=== PATIENT | female | born 1940 | race Caucasian/White ===

== ENCOUNTER 2016-12-07 13:28 | Outpatient (CLI) | payer MEDICARE | END 2016-12-07 13:29 | disposition home or self-care (01) | LOC: MADLABBHPM 13:28 | PROVIDERS: ATTEND Family Medicine | DX: E55.9 Vitamin D deficiency, unspecified (principal) | CPT/HCPCS: 36415; 82306 ==

== ENCOUNTER 2017-01-12 11:21 | Emergency (ER) | payer MEDICARE ==
[2017-01-12] MEDS ORDERED: AMOXicillin 250 MG CAP ONE (12:35)
[2017-01-12] MEDS ORDERED: Benzonatate 100 MG CAP ONE (12:35)
== END 2017-01-12 12:45 | disposition home or self-care (01) ==
LOC: MADERS 11:21
DX: J20.9 Acute bronchitis, unspecified (principal); E03.9 Hypothyroidism, unspecified; E78.5 Hyperlipidemia, unspecified; I10 Essential (primary) hypertension
CPT/HCPCS: 99283

== ENCOUNTER 2017-02-07 15:41 | Outpatient (CLI) | payer MEDICARE ==
--- NOTE | 2017-02-07 16:23 | RAD ---
RIGHT ANKLE THREE VIEWS 02/07/17 HISTORY: Right ankle pain. FINDINGS: The ankle mortise is intact. Soft tissue swelling is evident about the ankle. No acute fracture or d islocation are apparent. Osteophytosis is present throughout the midfoot and hindfoot. Heel spurs ar ise from the posterior aspect of the calcaneus. IMPRESSION: Mild osteoarthritic changes. No acute osseous abnormalities are demonstrated. POS: YOMAIRA
--- NOTE | 2017-02-07 16:24 | RAD ---
THREE VIEWS OF THE LEFT ANKLE 02/07/17 COMPARISON: None. HISTORY: Ankle joint pain for three weeks. No history of trauma. FINDINGS: The talar dome and ankle mortise appear intact. There is no displaced fracture or evidence of disloc ation. There is enthesophyte formation at the origin of the plantar aponeurosis and insertion of the Achilles tendon. There is prominent dorsal degenerative change involving the midfoot. IMPRESSION: Degenerative changes. No acute fracture or dislocation seen. POS: WILFRED
== END 2017-02-07 15:42 | disposition home or self-care (01) ==
LOC: MADLAB 15:41
PROVIDERS: ATTEND Family Medicine
DX: M25.571 Pain in right ankle and joints of right foot (principal); M19.071 Primary osteoarthritis, right ankle and foot

== ENCOUNTER 2017-03-27 13:49 | Outpatient (CLI) | payer MEDICARE ==
[2017-03-27 14:11] LABS: #Basophils 0.1 thou/uL (0.0-0.2); #Lymphocytes 1.8 thou/uL (1.20-3.40); #Monocytes 0.6 thou/uL (0.11-0.59); #Neutrophils 3.4 thou/uL (1.40-6.50); %Basophils 1.3 % (0.0-1.0); %Lymphocytes 30.7 % (21.0-51.0); %Monocytes 10.1 % (0.0-10.0); %Neutrophils 57.9 % (42.0-75.0); Mean Corpuscular HGB CONC 33.4 g/dL (32.0-36.0); Mean Corpuscular Hemoglobin 29.5 pg (27.0-31.0); Mean Corpuscular Volume 88.3 fl (81.0-99.0); Mean Platelet Volume 6.4 fL (7.4-10.4); Platelet Count 332 thou/uL (130-400); RBC Distribution Width 13.8 % (11.5-14.5); Red Blood Cell (RBC) Count 3.73 mill/uL (4.20-5.40); White Blood Cell (WBC) Count 5.8 thou/uL (4.8-10.8)
[2017-03-27 15:09] LABS: ALT (SGPT) 17 U/L (8-55); AST (SGOT) 15 U/L (5-34); Albumin 3.8 g/dL (3.4-4.8); Alkaline Phosphatase 70 U/L (40-150); Anion Gap 14 mmol/L (10-20); BUN (Urea Nitrogen) 16 mg/dL (9.8-20.1); Bilirubin, Total Less than 0.3 mg/dL (0.2-1.2); Calc. Creatinine Clearance 0 mL/min (70-130); Carbon Dioxide 25 mmol/L (23-31); Chloride 101 mmol/L (98-107); Estimated GFR-MDRD 68; Globulin 2.6 g/dL (2.4-3.5); Glucose 109 mg/dL (83-110); Potassium 3.7 mmol/L (3.5-5.1); Protein, Total 6.4 g/dL (6.0-8.3); Sodium 136 mmol/L (136-145)
== END 2017-03-27 13:50 | disposition home or self-care (01) ==
LOC: MADLABBHPM 13:49
PROVIDERS: ATTEND Family Medicine
DX: E03.9 Hypothyroidism, unspecified (principal); D50.8 Other iron deficiency anemias; I10 Essential (primary) hypertension
CPT/HCPCS: 36415; 80053; 84443; 85025

== ENCOUNTER 2017-04-03 13:46 | Outpatient (CLI) | payer MEDICARE ==
[2017-04-03 14:36] LABS: #Basophils 0.1 thou/uL (0.0-0.2); #Lymphocytes 1.5 thou/uL (1.20-3.40); #Monocytes 0.6 thou/uL (0.11-0.59); #Neutrophils 4.4 thou/uL (1.40-6.50); %Basophils 1.4 % (0.0-1.0); %Eosinophils 0.7 % (0.0-10.0); %Lymphocytes 22.8 % (21.0-51.0); %Monocytes 8.5 % (0.0-10.0); %Neutrophils 66.5 % (42.0-75.0); Hemoglobin 11.3 g/dL (12.0-16.0); Mean Corpuscular HGB CONC 31.7 g/dL (32.0-36.0); Mean Corpuscular Hemoglobin 28.7 pg (27.0-31.0); Mean Corpuscular Volume 90.4 fl (81.0-99.0); Mean Platelet Volume 5.9 fL (7.4-10.4); Platelet Count 369 thou/uL (130-400); RBC Distribution Width 15.3 % (11.5-14.5); Red Blood Cell (RBC) Count 3.93 mill/uL (4.20-5.40); White Blood Cell (WBC) Count 6.7 thou/uL (4.8-10.8)
== END 2017-04-03 13:47 | disposition home or self-care (01) ==
LOC: MADLABBHPM 13:46
PROVIDERS: ATTEND Family Medicine
DX: D50.8 Other iron deficiency anemias (principal)
CPT/HCPCS: 36415; 85025

== ENCOUNTER 2017-04-14 13:35 | Outpatient (CLI) | payer MEDICARE ==
[2017-04-14 14:00] LABS: Hemoglobin 12.5 g/dL (12.0-16.0); Manual Diff?? YES; Mean Corpuscular HGB CONC 31.4 g/dL (32.0-36.0); Mean Corpuscular Volume 92.4 fL (81.0-99.0); Mean Platelet Volume 7.2 fL (7.4-10.4); Platelet Count 198 thou/uL (130-400); RBC Distribution Width 16.6 % (11.5-14.5); Red Blood Cell (RBC) Count 4.31 mill/uL (4.20-5.40); White Blood Cell (WBC) Count 5.7 thou/uL (4.8-10.8)
[2017-04-14 14:23] LABS: Band 2 % (5-11); MDiff Complete? YES; Neutrophil 68 % (42-75)
[2017-04-14 14:24] LABS: Lymphocytes 19 % (21-51); Monocytes 11 % (0-10); PLT Morphology Comment Appears Adequate; RBC Morphology Normal
== END 2017-04-14 13:36 | disposition home or self-care (01) ==
LOC: MADLABBHPM 13:35
PROVIDERS: ATTEND Family Medicine
DX: D50.8 Other iron deficiency anemias (principal)
CPT/HCPCS: 36415; 85025

== ENCOUNTER 2017-04-28 09:08 | Outpatient (CLI) | payer MEDICARE ==
[2017-04-28 10:06] LABS: #Lymphocytes 1.1 thou/uL (1.20-3.40); #Monocytes 0.4 thou/uL (0.11-0.59); #Neutrophils 1.8 thou/uL (1.40-6.50); %Basophils 1.2 % (0.0-1.0); %Eosinophils 1.3 % (0.0-10.0); %Lymphocytes 33.4 % (21.0-51.0); %Monocytes 11.4 % (0.0-10.0); %Neutrophils 52.7 % (42.0-75.0); Hemoglobin 13.2 g/dL (12.0-16.0); Mean Corpuscular Hemoglobin 29.5 pg (27.0-31.0); Mean Corpuscular Volume 92.2 fl (81.0-99.0); Mean Platelet Volume 6.9 fL (7.4-10.4); Platelet Count 214 thou/uL (130-400); RBC Distribution Width 14.9 % (11.5-14.5); Red Blood Cell (RBC) Count 4.49 mill/uL (4.20-5.40); White Blood Cell (WBC) Count 3.4 thou/uL (4.8-10.8)
== END 2017-04-28 09:09 | disposition home or self-care (01) ==
LOC: MADLABBHPM 09:08
PROVIDERS: ATTEND Family Medicine
DX: D50.8 Other iron deficiency anemias (principal)
CPT/HCPCS: 36415; 85025

== ENCOUNTER 2017-05-17 11:30 | Outpatient (CLI) | payer MEDICARE ==
[2017-05-17 13:04] LABS: #Basophils 0.1 thou/uL (0.0-0.2); #Eosinphils 0.1 thou/uL (0.0-0.7); #Lymphocytes 1.7 thou/uL (1.20-3.40); #Monocytes 0.4 thou/uL (0.11-0.59); #Neutrophils 2.7 thou/uL (1.40-6.50); %Basophils 1.9 % (0.0-1.0); %Eosinophils 2.4 % (0.0-10.0); %Lymphocytes 33.4 % (21.0-51.0); %Monocytes 8.8 % (0.0-10.0); %Neutrophils 53.5 % (42.0-75.0); Hemoglobin 14.2 g/dL (12.0-16.0); Mean Corpuscular HGB CONC 32.2 g/dL (32.0-36.0); Mean Corpuscular Hemoglobin 29.3 pg (27.0-31.0); Mean Corpuscular Volume 91.2 fl (81.0-99.0); Mean Platelet Volume 6.9 fL (7.4-10.4); Platelet Count 200 thou/uL (130-400); RBC Distribution Width 13.9 % (11.5-14.5); Red Blood Cell (RBC) Count 4.85 mill/uL (4.20-5.40)
== END 2017-05-17 11:31 | disposition home or self-care (01) ==
LOC: MADLABBHPM 11:30
PROVIDERS: ATTEND Family Medicine
DX: D50.8 Other iron deficiency anemias (principal)
CPT/HCPCS: 36415; 85025

== ENCOUNTER 2017-06-08 09:55 | Outpatient (CLI) | payer MEDICARE ==
[2017-06-08 10:38] LABS: #Basophils 0.1 thou/uL (0.0-0.2); #Lymphocytes 1.8 thou/uL (1.20-3.40); #Monocytes 0.4 thou/uL (0.11-0.59); #Neutrophils 2.7 thou/uL (1.40-6.50); %Basophils 2.5 % (0.0-1.0); %Lymphocytes 35.9 % (21.0-51.0); %Monocytes 8.5 % (0.0-10.0); Mean Corpuscular Volume 90.5 fl (81.0-99.0); Mean Platelet Volume 7.3 fL (7.4-10.4); Platelet Count 205 thou/uL (130-400); RBC Distribution Width 13.1 % (11.5-14.5); Red Blood Cell (RBC) Count 5.35 mill/uL (4.20-5.40); White Blood Cell (WBC) Count 5.1 thou/uL (4.8-10.8)
== END 2017-06-08 09:56 | disposition home or self-care (01) ==
LOC: MADLABBHPM 09:55
PROVIDERS: ATTEND Family Medicine
DX: D50.8 Other iron deficiency anemias (principal)
CPT/HCPCS: 36415; 85025

== ENCOUNTER 2017-06-19 16:38 | Outpatient (CLI) | payer MEDICARE ==
[2017-06-19 16:59] LABS: #Lymphocytes 1.4 thou/uL (1.20-3.40); #Monocytes 0.5 thou/uL (0.11-0.59); #Neutrophils 4.1 thou/uL (1.40-6.50); %Basophils 0.7 % (0.0-1.0); %Eosinophils 0.7 % (0.0-10.0); %Lymphocytes 22.8 % (21.0-51.0); %Monocytes 7.6 % (0.0-10.0); %Neutrophils 68.2 % (42.0-75.0); Hemoglobin 15.5 g/dL (12.0-16.0); Mean Corpuscular HGB CONC 32.1 g/dL (32.0-36.0); Mean Corpuscular Hemoglobin 28.4 pg (27.0-31.0); Mean Corpuscular Volume 88.6 fl (81.0-99.0); Mean Platelet Volume 7.7 fL (7.4-10.4); Platelet Count 204 thou/uL (130-400); Red Blood Cell (RBC) Count 5.44 mill/uL (4.20-5.40); White Blood Cell (WBC) Count 5.9 thou/uL (4.8-10.8)
== END 2017-06-19 16:39 | disposition home or self-care (01) ==
LOC: MADLAB 16:38
PROVIDERS: ATTEND Family Medicine
DX: D50.8 Other iron deficiency anemias (principal)
CPT/HCPCS: 36415; 85025

== ENCOUNTER 2017-06-30 11:29 | Outpatient (CLI) | payer MEDICARE ==
[2017-06-30 12:16] LABS: #Basophils 0.1 thou/uL (0.0-0.2); #Lymphocytes 1.7 thou/uL (1.20-3.40); #Monocytes 0.5 thou/uL (0.11-0.59); #Neutrophils 2.7 thou/uL (1.40-6.50); %Basophils 1.7 % (0.0-1.0); %Eosinophils 0.8 % (0.0-10.0); %Lymphocytes 34.2 % (21.0-51.0); %Monocytes 9.2 % (0.0-10.0); %Neutrophils 54.1 % (42.0-75.0); Hemoglobin 14.8 g/dL (12.0-16.0); Mean Corpuscular HGB CONC 31.5 g/dL (32.0-36.0); Mean Corpuscular Hemoglobin 28.2 pg (27.0-31.0); Mean Corpuscular Volume 89.4 fl (81.0-99.0); Platelet Count 225 thou/uL (130-400); RBC Distribution Width 12.6 % (11.5-14.5); Red Blood Cell (RBC) Count 5.25 mill/uL (4.20-5.40)
== END 2017-06-30 11:30 | disposition home or self-care (01) ==
LOC: MADLABBHPM 11:29
PROVIDERS: ATTEND Family Medicine
DX: D50.8 Other iron deficiency anemias (principal)
CPT/HCPCS: 36415; 85025

== ENCOUNTER 2017-07-10 08:52 | Outpatient (CLI) | payer MEDICARE ==
[2017-07-10 09:29] LABS: Hemoglobin 12.6 g/dL (12.0-16.0); Mean Corpuscular HGB CONC 31.5 g/dL (32.0-36.0); Mean Corpuscular Hemoglobin 28.5 pg (27.0-31.0); Mean Corpuscular Volume 90.7 fl (81.0-99.0); Mean Platelet Volume 7.5 fL (7.4-10.4); Platelet Count 223 thou/uL (130-400); RBC Distribution Width 13.8 % (11.5-14.5); White Blood Cell (WBC) Count 5.3 thou/uL (4.8-10.8)
[2017-07-10 09:41] LABS: Band 2 % (5-11); Lymphocytes 45 % (21-51); MDiff Complete? YES; Manual Diff?? YES; Monocytes 6 % (0-10); Neutrophil 47 % (42-75)
[2017-07-10 09:42] LABS: PLT Morphology Comment Appears Adequate; RBC Morphology Normal
== END 2017-07-10 08:53 | disposition home or self-care (01) ==
LOC: MADLABBHPM 08:52
PROVIDERS: ATTEND Family Medicine
DX: D50.8 Other iron deficiency anemias (principal)
CPT/HCPCS: 36415; 85025

== ENCOUNTER 2017-07-20 09:11 | Outpatient (CLI) | payer MEDICARE ==
[2017-07-20 09:35] LABS: #Basophils 0.1 thou/uL (0.0-0.2); #Lymphocytes 1.4 thou/uL (1.20-3.40); #Monocytes 0.3 thou/uL (0.11-0.59); #Neutrophils 2.3 thou/uL (1.40-6.50); %Basophils 1.2 % (0.0-1.0); %Eosinophils 0.1 % (0.0-10.0); %Lymphocytes 33.9 % (21.0-51.0); %Monocytes 8.3 % (0.0-10.0); %Neutrophils 56.4 % (42.0-75.0); Hemoglobin 13.3 g/dL (12.0-16.0); Mean Corpuscular HGB CONC 31.8 g/dL (32.0-36.0); Mean Corpuscular Volume 91.4 fl (81.0-99.0); Mean Platelet Volume 6.3 fL (7.4-10.4); Platelet Count 258 thou/uL (130-400); RBC Distribution Width 14.1 % (11.5-14.5); Red Blood Cell (RBC) Count 4.59 mill/uL (4.20-5.40); White Blood Cell (WBC) Count 4.1 thou/uL (4.8-10.8)
== END 2017-07-20 09:12 | disposition home or self-care (01) ==
LOC: MADLABBHPM 09:11
PROVIDERS: ATTEND Family Medicine
DX: D50.8 Other iron deficiency anemias (principal)
CPT/HCPCS: 36415; 85025

== ENCOUNTER 2017-08-02 09:19 | Inpatient (IN) | payer MEDICARE ==
[2017-08-02] MEDS ORDERED: HYDROcodone/Acetaminophen 10/325 mg Tablet PO PRN (11:03)
[2017-08-02] MEDS ORDERED: Bisacodyl 5 MG TAB PO PRN (13:06)
[2017-08-02] MEDS ORDERED: Docusate 100 MG CAP PO PRN (13:06)
[2017-08-02] MEDS: Enoxaparin Sodium 40 MG/0.4 ML SYRINGE SC SCH (13:25)
--- NOTE | 2017-08-02 15:14 | HP ---
ATTENDING PHYSICIAN: Debby Sanchez DO DATE OF ADMISSION: 08/02/2017 CHIEF COMPLAINT: Admission for physical therapy and occupational therapy status post right total knee arthroplasty. HISTORY OF PRESENT ILLNESS: This is a 76-year-old female with history of hypertension, hypothyroidism, gastroesophageal reflux disease, anemia , history of GI bleed, depression, restless legs syndrome, and osteoarthritis, seen today for admission to [facility] bed for planned PT and OT, status post right knee arthroplasty. The patient is 1 week postop as of today. Due to insurance issues, she was unable to get authorization until today and has been home since Monday, doing home PT exercises. The patient did get authorization from [facility] yesterday and presented this morning for inpatient stay. She has been approved for 7 days. The patient underwent right total knee arthroplasty on 07/26/[address] Suresh Birmingham at [facility]. The postoperative course has been unremarkable thus far. The patient does have a history of chronic anemia as well as history of GI bleed x2 in the last year, presumably due to Yovany's erosions from a large hiatal hernia. Her postop hemoglobin on 07/28/2017 was 9.1 per record reviewed today. She has been continued on iron as well as her home medications. The patient today has no complaints. She states she has been taking her pain medicine which has been hydrocodone or tramadol as needed and has taken a total of 2 tablets a day. She has been doing the exercises at home on Monday, Monday, Monday and Monday without any major issues. She has been deemed weightbearing as tolerated to that right lower extremity and is unable to give me an idea of how far she has been able to walk thus far. She states she has had one bowel movement since her surgery, but it was a large bowel movement. She denies any issues with constipation. She has had a good appetite and has been tolerating a diet without any issues. PAST MEDICAL HISTORY: 1. Hypertension. 2. Hypothyroidism. 3. Gastroesophageal reflux disease. 4. Chronic anemia. 5. 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 6. Degenerative arthritis to multiple joints. 7. Depression. 8. Chronic sinusitis. 9. Restless legs syndrome. PAST SURGICAL HISTORY: 1. Right total knee arthroplasty on 07/26/2017. 2. Appendectomy in 1962. 3. Hysterectomy in 1972. 4. Cataract surgery in 2012. 5. Left knee total arthroplasty on 04/2014. FAMILY HISTORY: Unremarkable and noncontributory. SOCIAL HISTORY: The patient is a nonsmoker. She does not drink alcohol or use illicit drugs. She lives at home with her and is independent on ADLs at baseline. ALLERGIES: The patient is allergic to SULFA medications, MORPHINE as well as NSAIDs due to history of GI bleeding. MEDICATIONS 1. Desvenlafaxine succinate ER 100 mg extended release 1 tablet daily. 2. Ropinirole 0.25 mg 1 tablet once a day as needed before bedtime. 3. Levothyroxine 125 mcg 1 tablet once daily. 4. Losartan/HCTZ 50/12.5 mg 1/2 tablet by mouth daily. 5. Tolterodine 4 mg 1 tablet daily. 6. Omeprazole 20 mg 1 tablet twice daily. 7. Tylenol 650 mg 1 tablet every 8 hours as needed. 8. Ferrous sulfate 325 mg 1 tablet once a day. 9. Hydrocodone 10/325 mg 1 tablet every 6 hours as needed. 10. Tramadol 50 mg 1 tablet every 6 hours as needed. 11. Keflex 500 mg 4 times a day for a total of 14-day course ending 9 days from now. 12. Lovenox 40 mg subcu daily for a total of 14-day course ending 1 week from now. REVIEW OF SYSTEMS: GENERAL: She denies any weight gain, weight loss, fever, chills, or malaise. HEENT: Denies any blurry vision, sore throat, runny nose, or ear pain. CARDIOVASCULAR: Denies any chest pain, palpitations, or chest pressure. RESPIRATORY: Denies any cough, wheezing, shortness of breath, or difficulty breathing. ABDOMINAL: Denies any constipation, diarrhea, abdominal pain, blood in her stools. EXTREMITIES: Positive for joint pain and difficulty walking as well as joint swelling. NEUROLOGIC: Denies any syncope or seizures. HEMATOLOGIC: Denies any easy bruising or easy bleeding. PHYSICAL EXAMINATION: VITAL SIGNS: Temperature is 98.5, blood pressure is 120/58, heart rate is 90, respirations are 18, and O2 saturation is 97% on room air. GENERAL: The patient is alert and oriented x3 in no apparent distress. She is resting comfortably in the bed and cooperative and able to answer questions appropriately. HEENT: Pupils are equally round and reactive to light. Sclerae are nonicteric. Extraocular movements are intact. Oropharynx is moist without erythema or exudates. NECK: Supple without thyromegaly, lymphadenopathy or carotid bruits. CARDIOVASCULAR: Regular rate and rhythm with a 2/6 systolic murmur. RESPIRATORY: Lungs are clear to auscultation bilaterally. No wheezing, rales, or rhonchi. ABDOMEN: Soft, nontender, nondistended with normoactive bowel sounds. GENITOURINARY: Not examined. MUSCULOSKELETAL: Positive for significant ecchymosis and 2+ edema to the right lower extremity. Anterior knee dressing is clean, dry, and intact without any erythema, drainage or signs of infection. NEUROLOGIC: Gait is unsteady secondary to recent surgery. Otherwise, no focal deficits. PSYCHIATRIC: She is alert and oriented, pleasant with normal and appropriate affect. LABORATORY DATA AND IMAGING: None. ASSESSMENT: 1. Status post right total knee arthroplasty. 2. Acute on chronic anemia secondary to recent surgery as well as history of gastrointestinal bleeding in the past. 3. Unsteady gait secondary to recent surgery. 4. Hypertension. 5. Restless legs syndrome. 6. Gastroesophageal reflux disease. 7. Hypothyroidism. 8. Depression. PLAN: The patient will be admitted to swing bed for inpatient physical therapy and occupational therapy. She is currently unable to complete this at home due to gait immobility and co-morbidities. Both PT and OT have been consulted. The patient will be continued on her DVT prophylaxis with Lovenox daily for another week as well as her prophylactic antibiotic for a total of [address] Birmingham. Per the orthopedic surgeon, her dressing is not to be manipulated in any way and she will be following up with him on Monday next week for staple removal. The patient's pain will be controlled with her current home regimen of hydrocodone and tramadol, and we will start her on a bowel regimen with Colace and Dulcolax as needed. The patient does have a history of gastrointestinal bleeding and NSAIDs should be avoided. She is followed closely on an outpatient basis by GI, but will monitor for any further gastrointestinal issues while she is here. She is currently anemic and significantly decreased from her baseline of 13-14. We will continue her on iron supplement and repeat a CBC in the morning. We will anticipate 1-2 weeks stay pending insurance approval and plan for [facility] upon discharge. Deep venous thrombosis prophylaxis has been ordered with Lovenox. CODE STATUS: The patient is FULL CODE. MTDD
[2017-08-02] MEDS: traMADol HCl 50 MG TAB PO PRN (15:35)
[2017-08-02] MEDS: Cephalexin 500 MG CAP PO SCH ×2 (16:48→20:24)
[2017-08-02] MEDS: HYDROcodone/Acetaminophen 10/325 mg Tablet PO PRN ×2 (17:33→21:49)
[2017-08-02] MEDS: TROSPIUM 20 MG TABLET PO SCH (20:24)
[2017-08-02] MEDS: rOPINIRole HCl 0.25 MG TAB PO SCH (20:24)
[2017-08-03] MEDS: HYDROcodone/Acetaminophen 10/325 mg Tablet PO PRN ×2 (05:09→11:57)
[2017-08-03] MEDS: Levothyroxine Sodium 125 MCG TAB PO SCH (05:12)
[2017-08-03 05:32] LABS: #Basophils 0.1 thou/uL (0.0-0.2); #Eosinphils 0.1 thou/uL (0.0-0.7); #Lymphocytes 1.2 thou/uL (1.20-3.40); #Monocytes 0.5 thou/uL (0.11-0.59); #Neutrophils 2.5 thou/uL (1.40-6.50); %Basophils 1.7 % (0.0-1.0); %Eosinophils 2.4 % (0.0-10.0); %Lymphocytes 27.8 % (21.0-51.0); %Monocytes 12.2 % (0.0-10.0); Hemoglobin 8.9 g/dL (12.0-16.0); Mean Corpuscular HGB CONC 32.5 g/dL (32.0-36.0); Mean Corpuscular Hemoglobin 30.2 pg (27.0-31.0); Mean Corpuscular Volume 92.9 fl (81.0-99.0); Mean Platelet Volume 6.7 fL (7.4-10.4); Platelet Count 252 thou/uL (130-400); RBC Distribution Width 14.2 % (11.5-14.5); Red Blood Cell (RBC) Count 2.96 mill/uL (4.20-5.40); White Blood Cell (WBC) Count 4.4 thou/uL (4.8-10.8)
[2017-08-03 05:37] LABS: Anion Gap 11 mmol/L (10-20); BUN (Urea Nitrogen) 7 mg/dL (9.8-20.1); Calc. Creatinine Clearance 108 mL/min (70-130); Calcium 8.7 mg/dL (7.8-10.44); Carbon Dioxide 29 mmol/L (23-31); Chloride 102 mmol/L (98-107); Estimated GFR-MDRD 82; Glucose 99 mg/dL (83-110); Potassium 3.4 mmol/L (3.5-5.1); Sodium 139 mmol/L (136-145)
[2017-08-03] MEDS: Hydrochlorothiazide 25 MG TAB PO SCH (08:28)
[2017-08-03] MEDS: Enoxaparin Sodium 40 MG/0.4 ML SYRINGE SC SCH (08:28)
[2017-08-03] MEDS: Cephalexin 500 MG CAP PO SCH ×4 (08:29→21:39)
[2017-08-03] MEDS: Losartan Potassium 25 MG TAB PO SCH (08:29)
[2017-08-03] MEDS: Venlafaxine HCl XR 150 MG CAP PO SCH (08:29)
[2017-08-03] MEDS: TROSPIUM 20 MG TABLET PO SCH ×2 (08:29→22:01)
[2017-08-03] MEDS: traMADol HCl 50 MG TAB PO PRN ×2 (08:32→15:36)
[2017-08-03] MEDS ORDERED: Non-Formulary Item 1 EACH (Ferrous Sulfate [Iron] 325 MG) PO SCH (09:00)
[2017-08-03] MEDS ORDERED: Ferrous Sulfate 325 MG TAB PO SCH (09:00)
[2017-08-03] MEDS ORDERED: TOLTERODINE TARTRATE 4 MG PO SCH (09:00)
[2017-08-03] MEDS ORDERED: Docusate 100 MG CAP PO PRN (10:16)
[2017-08-03] MEDS: Ferrous Sulfate 325 MG TAB PO SCH (17:19)
[2017-08-03] MEDS: rOPINIRole HCl 0.25 MG TAB PO SCH (21:39)
[2017-08-03] MEDS: Acetaminophen 325 MG TAB PO PRN (22:31)
[2017-08-04] MEDS: Levothyroxine Sodium 125 MCG TAB PO SCH (05:21)
[2017-08-04 06:17] LABS: #Basophils 0.1 thou/uL (0.0-0.2); #Lymphocytes 1.1 thou/uL (1.20-3.40); #Monocytes 0.5 thou/uL (0.11-0.59); #Neutrophils 3.3 thou/uL (1.40-6.50); %Basophils 1.5 % (0.0-1.0); %Eosinophils 0.8 % (0.0-10.0); %Lymphocytes 21.9 % (21.0-51.0); %Monocytes 10.6 % (0.0-10.0); %Neutrophils 65.2 % (42.0-75.0); Hemoglobin 9.6 g/dL (12.0-16.0); Mean Corpuscular HGB CONC 31.8 g/dL (32.0-36.0); Mean Corpuscular Hemoglobin 29.5 pg (27.0-31.0); Mean Corpuscular Volume 92.8 fl (81.0-99.0); Mean Platelet Volume 6.6 fL (7.4-10.4); Platelet Count 308 thou/uL (130-400); RBC Distribution Width 14.2 % (11.5-14.5); Red Blood Cell (RBC) Count 3.26 mill/uL (4.20-5.40)
[2017-08-04] MEDS: Ferrous Sulfate 325 MG TAB PO SCH ×2 (07:25→17:03)
[2017-08-04 08:37] LABS: Bilirubin Negative (Negative); Blood, Urine Trace (Negative); Clarity Clear (Clear); Glucose, Urine (Dipstick) Negative (Negative); Leukocyte Negative (Negative); Nitrite Negative (Negative); Protein, Urine (Dipstick) Negative (Neg-Trace); RBC/HPF 0-3 HPF (0-3); Specific Gravity, Urine 1.015 (1.005-1.030); Urobilinogen 0.2 mg/dL (0.2-1.0); pH, Urine 7.5 (5.0-9.0)
[2017-08-04 08:39] LABS: Bacteria/HPF Rare-Few HPF (None Seen); Squamous Epithelial 0-3 HPF (0-3); WBC/HPF 0-3 HPF (0-3)
[2017-08-04] MEDS: Cephalexin 500 MG CAP PO SCH ×4 (10:02→20:11)
[2017-08-04] MEDS ORDERED: Losartan Potassium 25 MG TAB PO SCH ×2 (10:02→10:15)
[2017-08-04] MEDS: Hydrochlorothiazide 25 MG TAB PO SCH (10:03)
[2017-08-04] MEDS: Venlafaxine HCl XR 150 MG CAP PO SCH (10:04)
[2017-08-04] MEDS: Losartan Potassium 25 MG TAB PO SCH (10:04)
[2017-08-04] MEDS: Enoxaparin Sodium 40 MG/0.4 ML SYRINGE SC SCH (10:06)
[2017-08-04] MEDS: Acetaminophen 325 MG TAB PO PRN (10:39)
--- NOTE | 2017-08-04 14:45 | CT ---
CT OF THE BRAIN WITHOUT CONTRAST: Date: 08/04/17 COMPARISON: None. HISTORY: Acute onset of delirium. TECHNIQUE: Multiple contiguous axial images were obtained in a CT of the brain without contrast. FINDINGS: There are scattered hypodensities in the subcortical and periventricular white matter, likely second davida to small vessel ischemic disease. No large confluent infarction is seen. There is no evidence of hydrocephalus, intracranial hemorrhage, or extra-axial fluid collection. The calvarium and overlying soft tissues are unremarkable. The visualized paranasal sinuses and mast oid air cells are well aerated. IMPRESSION: No evidence of acute intracranial abnormality. POS: [facility]
[2017-08-04] MEDS: rOPINIRole HCl 0.25 MG TAB PO SCH (20:11)
[2017-08-05] MEDS: Levothyroxine Sodium 125 MCG TAB PO SCH (06:16)
[2017-08-05] MEDS: Ferrous Sulfate 325 MG TAB PO SCH ×2 (07:22→17:17)
[2017-08-05] MEDS: Hydrochlorothiazide 25 MG TAB PO SCH (07:23)
[2017-08-05] MEDS: Venlafaxine HCl XR 150 MG CAP PO SCH (07:24)
[2017-08-05] MEDS: Docusate 100 MG CAP PO SCH (07:24)
[2017-08-05] MEDS: Losartan Potassium 25 MG TAB PO SCH (07:24)
[2017-08-05] MEDS: Cephalexin 500 MG CAP PO SCH ×4 (07:24→20:29)
[2017-08-05] MEDS: Enoxaparin Sodium 40 MG/0.4 ML SYRINGE SC SCH (07:25)
[2017-08-05] MEDS: TOLTERODINE TARTRATE 4 MG PO SCH (07:25)
[2017-08-05] MEDS: rOPINIRole HCl 0.25 MG TAB PO SCH (20:29)
[2017-08-05] MEDS: Acetaminophen 325 MG TAB PO PRN (20:30)
[2017-08-06] MEDS: Levothyroxine Sodium 125 MCG TAB PO SCH (06:04)
[2017-08-06] MEDS: Docusate 100 MG CAP PO SCH (08:30)
[2017-08-06] MEDS: Ferrous Sulfate 325 MG TAB PO SCH ×2 (08:30→17:03)
[2017-08-06] MEDS: Losartan Potassium 25 MG TAB PO SCH (08:30)
[2017-08-06] MEDS: Cephalexin 500 MG CAP PO SCH ×4 (08:30→20:30)
[2017-08-06] MEDS: Hydrochlorothiazide 25 MG TAB PO SCH (08:31)
[2017-08-06] MEDS: Venlafaxine HCl XR 150 MG CAP PO SCH (08:31)
[2017-08-06] MEDS: Acetaminophen 325 MG TAB PO PRN ×2 (08:32→18:13)
[2017-08-06] MEDS: TOLTERODINE TARTRATE 4 MG PO SCH (08:33)
[2017-08-06] MEDS: Enoxaparin Sodium 40 MG/0.4 ML SYRINGE SC SCH (08:33)
[2017-08-06] MEDS: rOPINIRole HCl 0.25 MG TAB PO SCH (20:30)
[2017-08-07] MEDS: Levothyroxine Sodium 125 MCG TAB PO SCH (06:04)
[2017-08-07] MEDS: Acetaminophen 325 MG TAB PO PRN ×3 (07:31→19:50)
[2017-08-07] MEDS: Enoxaparin Sodium 40 MG/0.4 ML SYRINGE SC SCH (08:39)
[2017-08-07] MEDS: Cephalexin 500 MG CAP PO SCH ×4 (08:40→19:50)
[2017-08-07] MEDS: Losartan Potassium 25 MG TAB PO SCH (08:40)
[2017-08-07] MEDS: Ferrous Sulfate 325 MG TAB PO SCH ×2 (08:40→17:05)
[2017-08-07] MEDS: Hydrochlorothiazide 25 MG TAB PO SCH (08:41)
[2017-08-07] MEDS: Docusate 100 MG CAP PO SCH (08:41)
[2017-08-07] MEDS: TOLTERODINE TARTRATE 4 MG PO SCH (08:42)
[2017-08-07] MEDS: Venlafaxine HCl XR 150 MG CAP PO SCH (08:42)
[2017-08-07 14:57] LABS: #Basophils 0.1 thou/uL (0.0-0.2); #Lymphocytes 1.6 thou/uL (1.20-3.40); #Monocytes 0.6 thou/uL (0.11-0.59); #Neutrophils 4.7 thou/uL (1.40-6.50); %Basophils 1.2 % (0.0-1.0); %Eosinophils 0.5 % (0.0-10.0); %Lymphocytes 22.5 % (21.0-51.0); %Monocytes 8.4 % (0.0-10.0); %Neutrophils 67.5 % (42.0-75.0); Hemoglobin 10.4 g/dL (12.0-16.0); Mean Corpuscular HGB CONC 31.4 g/dL (32.0-36.0); Mean Corpuscular Hemoglobin 29.1 pg (27.0-31.0); Mean Corpuscular Volume 92.7 fl (81.0-99.0); Mean Platelet Volume 6.5 fL (7.4-10.4); Platelet Count 363 thou/uL (130-400); RBC Distribution Width 15.1 % (11.5-14.5); Red Blood Cell (RBC) Count 3.59 mill/uL (4.20-5.40)
[2017-08-07] MEDS: rOPINIRole HCl 0.25 MG TAB PO SCH (19:50)
[2017-08-08 04:40] VITALS: BMI 30.4
[2017-08-08] MEDS: Levothyroxine Sodium 125 MCG TAB PO SCH (06:02)
[2017-08-08] MEDS: Ferrous Sulfate 325 MG TAB PO SCH (06:21)
[2017-08-08] MEDS: Losartan Potassium 25 MG TAB PO SCH ×2 (06:21→06:23)
[2017-08-08] MEDS: Cephalexin 500 MG CAP PO SCH ×2 (06:21→13:28)
[2017-08-08] MEDS: Docusate 100 MG CAP PO SCH (06:21)
[2017-08-08] MEDS: Hydrochlorothiazide 25 MG TAB PO SCH (06:22)
[2017-08-08] MEDS: Enoxaparin Sodium 40 MG/0.4 ML SYRINGE SC SCH (06:24)
[2017-08-08] MEDS: Acetaminophen 325 MG TAB PO PRN ×2 (06:24→13:27)
[2017-08-08] MEDS: Venlafaxine HCl XR 150 MG CAP PO SCH (06:24)
[2017-08-08] MEDS: TOLTERODINE TARTRATE 4 MG PO SCH (06:25)
[2017-08-08 07:41] VITALS: BP 144/83; TEMP 97.7
--- NOTE | 2017-08-08 18:07 | DIS ---
DATE OF ADMISSION: 08/02/2017 DATE OF DISCHARGE: 08/08/2017 FINAL DIAGNOSES: 1. Status post right total knee arthroplasty. 2. Gait immobility. 3. Acute on chronic anemia. 4. Acute delirium. 5. Chronic hypertension. 6. Gastroesophageal reflux disease. 7. Degenerative arthritis. 8. Depression. 9. Hypothyroidism. 10. History of GI bleed secondary to Yovany's erosion. 11. Restless leg syndrome. HOSPITAL COURSE: This is a 76-year-old female that was admitted a week ago for physical t herapy and occupational therapy, status post right total knee arthroplasty that was performed on . The patient has done well with physical therapy and is now ambulatory with a walker and pa in is under much better control. She has not required any narcotic medication since last Monday. S he did see her orthopedic surgeon this morning, who recommended that she is ready for discharge to [facility] with outpatient physical therapy. Hospital course was mostly uncomplicated with the exception o f acute delirium that came on last afternoon and continued into Monday and Monday. As of day of discharge, it is completely resolved. Workup of this including urinalysis, CBC, metabolic p raoul, CT head were all negative. It was presumed that her delirium was secondary to either narcotic medication or substitute overactive bladder medication that was given to her by Pharmacy. By the d ay of discharge, the patient was walking, tolerating a diet. Her pain was well controlled and she w as independent on ADLs with the exception of being able to stand for prolonged periods. She will us e a walker upon discharge as needed. DIET: Will be regular diet. ACTIVITY: With weight-bearing as tolerated. FOLLOWUP: The patient will establish care with outpatient physical therapy center this week. Mino w up with myself in the office in [address] Birmingham, orthopedic surgeon as scheduled.
== END 2017-08-08 15:55 | disposition home or self-care (01) | DRG 561 ==
LOC: MADMS 09:19
PROVIDERS: ADMIT Family Medicine; ATTEND Family Medicine
DX: Z47.1 Aftercare following joint replacement surgery (principal); K25.7 Chronic gastric ulcer without hemorrhage or perforation; R53.1 Weakness; I10 Essential (primary) hypertension; E03.9 Hypothyroidism, unspecified; K21.9 Gastro-esophageal reflux disease without esophagitis; F32.9 Major depressive disorder, single episode, unspecified; G25.81 Restless legs syndrome; M19.90 Unspecified osteoarthritis, unspecified site; Z96.651 Presence of right artificial knee joint; J32.9 Chronic sinusitis, unspecified; Z96.652 Presence of left artificial knee joint; Z88.2 Allergy status to sulfonamides; Z88.5 Allergy status to narcotic agent; Z88.6 Allergy status to analgesic agent; R41.0 Disorientation, unspecified; T50.995A Adverse effect of other drugs, medicaments and biological substances, initial encounter; N32.81 Overactive bladder; D50.9 Iron deficiency anemia, unspecified; I49.9 Cardiac arrhythmia, unspecified
CPT/HCPCS: 36415; 70450; 80048; 81001; 85025; 87086; A4353; G8978-GP-CK; G8979-GP-CI; J1650

== ENCOUNTER 2017-08-26 10:42 | Emergency (ER) | payer MEDICARE ==
[2017-08-26 12:01] LABS: #Basophils 0.1 thou/uL (0.0-0.2); #Eosinphils 0.1 thou/uL (0.0-0.7); #Lymphocytes 1.1 thou/uL (1.20-3.40); #Monocytes 0.4 thou/uL (0.11-0.59); #Neutrophils 3.4 thou/uL (1.40-6.50); %Basophils 2.1 % (0.0-1.0); %Eosinophils 1.4 % (0.0-10.0); %Lymphocytes 21.6 % (21.0-51.0); %Monocytes 7.8 % (0.0-10.0); %Neutrophils 67.1 % (42.0-75.0); Hemoglobin 12.9 g/dL (12.0-16.0); Mean Corpuscular HGB CONC 32.1 g/dL (32.0-36.0); Mean Corpuscular Hemoglobin 30.1 pg (27.0-31.0); Mean Corpuscular Volume 93.9 fl (81.0-99.0); Mean Platelet Volume 6.3 fL (7.4-10.4); Platelet Count 214 thou/uL (130-400); RBC Distribution Width 13.8 % (11.5-14.5); Red Blood Cell (RBC) Count 4.29 mill/uL (4.20-5.40)
[2017-08-26 12:07] LABS: ALT (SGPT) 11 U/L (8-55); AST (SGOT) 15 U/L (5-34); Albumin 3.8 g/dL (3.4-4.8); Alkaline Phosphatase 76 U/L (40-150); Anion Gap 15 mmol/L (10-20); BUN (Urea Nitrogen) 9 mg/dL (9.8-20.1); Bilirubin, Total 0.4 mg/dL (0.2-1.2); Calc. Creatinine Clearance 0 mL/min (70-130); Calcium 9.4 mg/dL (7.8-10.44); Carbon Dioxide 27 mmol/L (23-31); Chloride 101 mmol/L (98-107); Estimated GFR-MDRD 69; Globulin 2.8 g/dL (2.4-3.5); Glucose 103 mg/dL (83-110); Potassium 3.5 mmol/L (3.5-5.1); Protein, Total 6.6 g/dL (6.0-8.3); Sodium 139 mmol/L (136-145)
== END 2017-08-26 12:25 | disposition home or self-care (01) ==
LOC: MADERS 10:42
DX: K92.1 Melena (principal); I10 Essential (primary) hypertension; E03.9 Hypothyroidism, unspecified; E78.5 Hyperlipidemia, unspecified; M19.90 Unspecified osteoarthritis, unspecified site; Z79.899 Other long term (current) drug therapy
CPT/HCPCS: 36415; 80053; 85025; 99284

== ENCOUNTER 2017-09-15 09:18 | Outpatient (CLI) | payer MEDICARE ==
[2017-09-15 09:43] LABS: #Basophils 0.1 thou/uL (0.0-0.2); #Lymphocytes 1.5 thou/uL (1.20-3.40); #Monocytes 0.5 thou/uL (0.11-0.59); #Neutrophils 2.9 thou/uL (1.40-6.50); %Basophils 1.7 % (0.0-1.0); %Lymphocytes 30.4 % (21.0-51.0); %Monocytes 9.5 % (0.0-10.0); %Neutrophils 58.4 % (42.0-75.0); Hemoglobin 14.1 g/dL (12.0-16.0); Mean Corpuscular HGB CONC 31.4 g/dL (32.0-36.0); Mean Corpuscular Hemoglobin 29.6 pg (27.0-31.0); Mean Corpuscular Volume 94.3 fl (81.0-99.0); Mean Platelet Volume 6.9 fL (7.4-10.4); Platelet Count 203 thou/uL (130-400); RBC Distribution Width 12.6 % (11.5-14.5); Red Blood Cell (RBC) Count 4.77 mill/uL (4.20-5.40)
== END 2017-09-15 09:19 | disposition home or self-care (01) ==
LOC: MADLAB 09:18
PROVIDERS: ATTEND Family Medicine
DX: D50.8 Other iron deficiency anemias (principal)
CPT/HCPCS: 36415; 85025

== ENCOUNTER 2017-10-09 11:47 | Outpatient (CLI) | payer MEDICARE ==
[2017-10-09 12:29] LABS: #Basophils 0.1 thou/uL (0.0-0.2); #Lymphocytes 1.4 thou/uL (1.20-3.40); #Monocytes 0.5 thou/uL (0.11-0.59); #Neutrophils 2.5 thou/uL (1.40-6.50); %Basophils 2.7 % (0.0-1.0); %Eosinophils 0.9 % (0.0-10.0); %Lymphocytes 31.4 % (21.0-51.0); %Monocytes 10.5 % (0.0-10.0); %Neutrophils 54.4 % (42.0-75.0); Hemoglobin 15.7 g/dL (12.0-16.0); Mean Corpuscular HGB CONC 32.3 g/dL (32.0-36.0); Mean Corpuscular Hemoglobin 29.9 pg (27.0-31.0); Mean Corpuscular Volume 92.4 fl (81.0-99.0); Mean Platelet Volume 6.4 fL (7.4-10.4); Platelet Count 205 thou/uL (130-400); RBC Distribution Width 12.5 % (11.5-14.5); Red Blood Cell (RBC) Count 5.27 mill/uL (4.20-5.40); White Blood Cell (WBC) Count 4.5 thou/uL (4.8-10.8)
== END 2017-10-09 11:48 | disposition home or self-care (01) ==
LOC: MADLABBHPM 11:47
PROVIDERS: ATTEND Family Medicine
DX: D50.8 Other iron deficiency anemias (principal)
CPT/HCPCS: 36415; 85025

== ENCOUNTER 2017-10-24 19:04 | Emergency (ER) | payer MEDICARE | END 2017-10-24 20:00 | disposition home or self-care (01) | LOC: MADERS 19:04 | DX: I10 Essential (primary) hypertension (principal); E03.9 Hypothyroidism, unspecified; E78.5 Hyperlipidemia, unspecified; Z79.891 Long term (current) use of opiate analgesic; Z79.899 Other long term (current) drug therapy | CPT/HCPCS: 99283 ==

== ENCOUNTER 2017-10-26 12:35 | Outpatient (CLI) | payer MEDICARE ==
[2017-10-26 12:58] LABS: #Basophils 0.1 thou/uL (0.0-0.2); #Lymphocytes 1.4 thou/uL (1.20-3.40); #Monocytes 0.5 thou/uL (0.11-0.59); #Neutrophils 3.6 thou/uL (1.40-6.50); %Basophils 1.7 % (0.0-1.0); %Eosinophils 0.8 % (0.0-10.0); %Lymphocytes 25.5 % (21.0-51.0); %Monocytes 8.7 % (0.0-10.0); %Neutrophils 63.4 % (42.0-75.0); Hemoglobin 15.9 g/dL (12.0-16.0); Mean Corpuscular HGB CONC 31.4 g/dL (32.0-36.0); Mean Corpuscular Hemoglobin 28.9 pg (27.0-31.0); Mean Platelet Volume 6.5 fL (7.4-10.4); Platelet Count 209 thou/uL (130-400); RBC Distribution Width 11.9 % (11.5-14.5); White Blood Cell (WBC) Count 5.6 thou/uL (4.8-10.8)
== END 2017-10-26 12:36 | disposition home or self-care (01) ==
LOC: MADLABBHPM 12:35
PROVIDERS: ATTEND Family Medicine
DX: D50.8 Other iron deficiency anemias (principal)
CPT/HCPCS: 36415; 85025

== ENCOUNTER 2017-11-22 10:47 | Outpatient (CLI) | payer MEDICARE ==
[2017-11-22 11:05] LABS: #Lymphocytes 1.4 thou/uL (1.20-3.40); #Monocytes 0.4 thou/uL (0.11-0.59); #Neutrophils 2.8 thou/uL (1.40-6.50); %Eosinophils 0.1 % (0.0-10.0); %Lymphocytes 30.3 % (21.0-51.0); %Monocytes 8.9 % (0.0-10.0); %Neutrophils 59.7 % (42.0-75.0); Hemoglobin 15.9 g/dL (12.0-16.0); Mean Corpuscular HGB CONC 32.3 g/dL (32.0-36.0); Mean Corpuscular Hemoglobin 29.4 pg (27.0-31.0); Mean Corpuscular Volume 91.2 fl (81.0-99.0); Mean Platelet Volume 6.8 fL (7.4-10.4); Platelet Count 219 thou/uL (130-400); RBC Distribution Width 12.3 % (11.5-14.5); Red Blood Cell (RBC) Count 5.38 mill/uL (4.20-5.40); White Blood Cell (WBC) Count 4.7 thou/uL (4.8-10.8)
== END 2017-11-22 10:48 | disposition home or self-care (01) ==
LOC: MADLABBHPM 10:47
PROVIDERS: ATTEND Family Medicine
DX: D50.8 Other iron deficiency anemias (principal)
CPT/HCPCS: 36415; 85025

== ENCOUNTER 2017-12-15 09:22 | Outpatient (CLI) | payer MEDICARE ==
[2017-12-15 09:55] LABS: #Basophils 0.1 thou/uL (0.0-0.2); #Lymphocytes 1.3 thou/uL (1.20-3.40); #Monocytes 0.3 thou/uL (0.11-0.59); #Neutrophils 2.2 thou/uL (1.40-6.50); %Eosinophils 0.8 % (0.0-10.0); %Lymphocytes 33.4 % (21.0-51.0); %Monocytes 7.9 % (0.0-10.0); %Neutrophils 55.8 % (42.0-75.0); Hemoglobin 15.2 g/dL (12.0-16.0); Mean Corpuscular HGB CONC 32.1 g/dL (32.0-36.0); Mean Corpuscular Hemoglobin 29.9 pg (27.0-31.0); Mean Corpuscular Volume 93.2 fl (81.0-99.0); Mean Platelet Volume 6.7 fL (7.4-10.4); Platelet Count 216 thou/uL (130-400); RBC Distribution Width 12.4 % (11.5-14.5); Red Blood Cell (RBC) Count 5.06 mill/uL (4.20-5.40); White Blood Cell (WBC) Count 3.9 thou/uL (4.8-10.8)
== END 2017-12-15 09:23 | disposition home or self-care (01) ==
LOC: MADLABBHPM 09:22
PROVIDERS: ATTEND Family Medicine
DX: D50.8 Other iron deficiency anemias (principal)
CPT/HCPCS: 36415; 85025

== ENCOUNTER 2017-12-26 10:16 | Outpatient (CLI) | payer MEDICARE ==
--- NOTE | 2017-12-26 11:55 | RAD ---
THREE VIEWS LEFT WRIST: HISTORY: Left wrist pain after fall on Monday night. COMPARISON: None. FINDINGS: Three views of the left wrist shows no evidence of acute fracture or dislocation. Mild soft tissue s welling is seen. No degenerative changes are present. IMPRESSION: No evidence of acute osseous abnormality. POS: YOMAIRA
--- NOTE | 2017-12-26 12:03 | RAD ---
LEFT FOREARM TWO VIEWS: HISTORY: Fall. Left forearm pain. FINDINGS: The left radius and ulna appear intact. POS: H
== END 2017-12-26 10:17 | disposition home or self-care (01) ==
LOC: MADRAD 10:16
PROVIDERS: ATTEND Family Medicine
DX: S59.912A Unspecified injury of left forearm, initial encounter (principal); D50.8 Other iron deficiency anemias

== ENCOUNTER 2018-01-17 15:08 | Outpatient (CLI) | payer MEDICARE ==
[2018-01-17 16:07] LABS: #Basophils 0.1 thou/uL (0.0-0.2); #Lymphocytes 1.6 thou/uL (1.20-3.40); #Monocytes 0.5 thou/uL (0.11-0.59); #Neutrophils 4.1 thou/uL (1.40-6.50); %Basophils 1.6 % (0.0-1.0); %Eosinophils 0.8 % (0.0-10.0); %Lymphocytes 25.5 % (21.0-51.0); %Monocytes 7.6 % (0.0-10.0); %Neutrophils 64.6 % (42.0-75.0); Hemoglobin 15.5 g/dL (12.0-16.0); Mean Corpuscular Hemoglobin 30.9 pg (27.0-31.0); Mean Corpuscular Volume 93.8 fl (81.0-99.0); Mean Platelet Volume 6.8 fL (7.4-10.4); Platelet Count 213 thou/uL (130-400); RBC Distribution Width 12.1 % (11.5-14.5); White Blood Cell (WBC) Count 6.3 thou/uL (4.8-10.8)
== END 2018-01-17 15:09 | disposition home or self-care (01) ==
LOC: MADLABBHPM 15:08
PROVIDERS: ATTEND Family Medicine
DX: D50.8 Other iron deficiency anemias (principal)
CPT/HCPCS: 36415; 85025

== ENCOUNTER 2018-02-19 10:22 | Outpatient (CLI) | payer MEDICARE ==
[2018-02-19 13:08] LABS: Bilirubin Negative (Negative); Clarity Clear (Clear); Glucose, Urine (Dipstick) Negative (Negative); Leukocyte Negative (Negative); Nitrite Negative (Negative); Protein, Urine (Dipstick) Negative (Neg-Trace); Specific Gravity, Urine 1.015 (1.005-1.030); Urobilinogen 0.2 mg/dL (0.2-1.0); pH, Urine 6.5 (5.0-9.0)
[2018-02-19 13:09] LABS: Bacteria/HPF Rare-Few HPF (None Seen); Blood, Urine Trace (Negative); RBC/HPF 0-3 HPF (0-3); Squamous Epithelial 0-3 HPF (0-3); WBC/HPF 0-3 HPF (0-3)
== END 2018-02-19 10:23 | disposition home or self-care (01) ==
LOC: MADLABBHPM 10:22
PROVIDERS: ATTEND Family Medicine
DX: D50.8 Other iron deficiency anemias (principal); R30.0 Dysuria
CPT/HCPCS: 81001; 87086

== ENCOUNTER 2018-03-14 10:48 | Outpatient (CLI) | payer MEDICARE ==
[2018-03-14 12:19] LABS: #Basophils 0.1 thou/uL (0.0-0.2); #Lymphocytes 1.1 thou/uL (1.20-3.40); #Monocytes 0.3 thou/uL (0.11-0.59); #Neutrophils 2.8 thou/uL (1.40-6.50); %Basophils 1.7 % (0.0-1.0); %Monocytes 7.6 % (0.0-10.0); %Neutrophils 64.7 % (42.0-75.0); Hemoglobin 15.3 g/dL (12.0-16.0); Mean Corpuscular HGB CONC 34.1 g/dL (32.0-36.0); Mean Corpuscular Hemoglobin 30.6 pg (27.0-31.0); Mean Corpuscular Volume 89.7 fl (81.0-99.0); Mean Platelet Volume 6.4 fL (7.4-10.4); Platelet Count 198 thou/uL (130-400); RBC Distribution Width 11.1 % (11.5-14.5); Red Blood Cell (RBC) Count 4.99 mill/uL (4.20-5.40); White Blood Cell (WBC) Count 4.3 thou/uL (4.8-10.8)
== END 2018-03-14 10:49 | disposition home or self-care (01) ==
LOC: MADLABBHPM 10:48
PROVIDERS: ATTEND Family Medicine
DX: D50.8 Other iron deficiency anemias (principal)
CPT/HCPCS: 36415; 85025

== ENCOUNTER 2018-05-01 10:57 | Outpatient (CLI) | payer MEDICARE ==
[2018-05-01 11:50] LABS: #Eosinphils 0.1 thou/uL (0.0-0.7); #Monocytes 0.3 thou/uL (0.11-0.59); #Neutrophils 2.3 thou/uL (1.40-6.50); %Basophils 1.1 % (0.0-1.0); %Eosinophils 1.4 % (0.0-10.0); %Lymphocytes 27.5 % (21.0-51.0); %Monocytes 8.8 % (0.0-10.0); %Neutrophils 61.2 % (42.0-75.0); Hemoglobin 15.2 g/dL (12.0-16.0); Mean Corpuscular HGB CONC 32.3 g/dL (32.0-36.0); Mean Corpuscular Hemoglobin 29.1 pg (27.0-31.0); Mean Corpuscular Volume 90.2 fl (81.0-99.0); Platelet Count 181 thou/uL (130-400); RBC Distribution Width 11.2 % (11.5-14.5); Red Blood Cell (RBC) Count 5.23 mill/uL (4.20-5.40); White Blood Cell (WBC) Count 3.8 thou/uL (4.8-10.8)
== END 2018-05-01 10:58 | disposition home or self-care (01) ==
LOC: MADLABBHPM 10:57
PROVIDERS: ATTEND Family Medicine
DX: D50.8 Other iron deficiency anemias (principal)
CPT/HCPCS: 36415; 85025

== ENCOUNTER 2018-09-14 07:54 | Outpatient (CLI) | payer MEDICARE ==
[2018-09-14 08:15] LABS: #Basophils 0.1 thou/uL (0.0-0.2); #Eosinphils 0.1 thou/uL (0.0-0.7); #Lymphocytes 1.4 thou/uL (1.20-3.40); #Monocytes 0.4 thou/uL (0.11-0.59); #Neutrophils 2.3 thou/uL (1.40-6.50); %Basophils 1.7 % (0.0-1.0); %Eosinophils 1.2 % (0.0-10.0); %Lymphocytes 32.8 % (21.0-51.0); %Monocytes 9.9 % (0.0-10.0); %Neutrophils 54.3 % (42.0-75.0); Hemoglobin 15.1 g/dL (12.0-16.0); Mean Corpuscular Hemoglobin 30.6 pg (27.0-31.0); Mean Corpuscular Volume 92.7 fL (78.0-98.0); Mean Platelet Volume 6.4 fL (7.4-10.4); Platelet Count 230 thou/uL (130-400); RBC Distribution Width 11.3 % (11.5-14.5); Red Blood Cell (RBC) Count 4.92 mill/uL (4.20-5.40); White Blood Cell (WBC) Count 4.3 thou/uL (4.8-10.8)
== END 2018-09-14 07:55 | disposition home or self-care (01) ==
LOC: MADLABBHPM 07:54
PROVIDERS: ATTEND Family Medicine
DX: D50.8 Other iron deficiency anemias (principal)
CPT/HCPCS: 36415; 85025

== ENCOUNTER 2019-02-19 12:53 | Outpatient (CLI) | payer MEDICARE ==
[2019-02-19 13:21] LABS: #Basophils 0.1 thou/uL (0.0-0.2); #Lymphocytes 1.3 thou/uL (1.20-3.40); #Monocytes 0.5 thou/uL (0.11-0.59); %Basophils 1.7 % (0.0-1.0); %Eosinophils 0.1 % (0.0-10.0); %Lymphocytes 26.8 % (21.0-51.0); %Monocytes 10.3 % (0.0-10.0); %Neutrophils 61.1 % (42.0-75.0); Hemoglobin 14.7 g/dL (12.0-16.0); Mean Corpuscular HGB CONC 31.4 g/dL (32.0-36.0); Mean Corpuscular Hemoglobin 28.4 pg (27.0-31.0); Mean Corpuscular Volume 90.7 fL (78.0-98.0); Mean Platelet Volume 5.8 fL (7.4-10.4); Platelet Count 223 thou/uL (130-400); RBC Distribution Width 12.4 % (11.5-14.5); Red Blood Cell (RBC) Count 5.16 mill/uL (4.20-5.40); White Blood Cell (WBC) Count 4.9 thou/uL (4.8-10.8)
== END 2019-02-19 12:54 | disposition home or self-care (01) ==
LOC: MADLABBHPM 12:53
PROVIDERS: ATTEND Family Medicine
DX: D50.8 Other iron deficiency anemias (principal)
CPT/HCPCS: 36415; 85025

== ENCOUNTER 2020-01-20 12:13 | Emergency (ER) | payer MEDICARE ==
--- NOTE | 2020-01-20 14:16 | RAD ---
XR Humerus Lt 2 View STANDARD History: Injury Comparison: None. Findings: Humerus is intact. No fracture. This clavicular osteolysis versus surgical resection. Tendon suture anchors left humeral head. Ribs are intact. Impression: No acute fracture of the left humerus.
== END 2020-01-20 12:31 | disposition home or self-care (01) ==
LOC: MADERS 12:13
DX: S50.12XA Contusion of left forearm, initial encounter (principal); M19.90 Unspecified osteoarthritis, unspecified site; E03.9 Hypothyroidism, unspecified; I10 Essential (primary) hypertension; V57.6XXA Passenger in pick-up truck or van injured in collision with fixed or stationary object in traffic accident, initial encounter

== ENCOUNTER 2020-01-26 19:10 | Emergency (ER) | payer MEDICARE ==
--- NOTE | 2020-01-26 20:04 | CT ---
Head CT without contrast 01/26/2020: COMPARISON: 08/04/2017 HISTORY: Fall with head injury TECHNIQUE: Axial CT imaging at 5 mm intervals from vertex through skull base without contrast FINDINGS: Imaged paranasal sinuses and mastoid air cells appear well-aerated. No displaced calvarial fracture. There is no intracranial hemorrhage, midline shift, mass effect, or ventricular enlargement. There is cerebral volume loss with associated prominence of the CSF containing spaces, stable. There is stable white matter hypodensity suggesting small vessel disease as well IMPRESSION: Stable head CT as detailed above. No intracranial hemorrhage.
--- NOTE | 2020-01-26 20:14 | CT ---
CT of thecervical spine: 01/26/2020 COMPARISON:None available HISTORY:Fall, trauma, pain TECHNIQUE: Serial axial CT imaging at2.5 mm intervals from theskull base through lung apices without contrast. Coronal and sagittal reformatted imaging obtained Findings:The imaged lung apices appear grossly unremarkable. The craniocervical junction, the atlantoaxial interspace, the occipital condyles, the dens, the C1-2 articulation, in the prevertebral soft tissues appear grossly unremarkable. Multilevel scattered facet hypertrophy noted throughout the cervical spine bilaterally. No displaced fracture or evidence of dislocation is appreciated. Impression:Cervical spine degenerative change. No acute fracture or dislocation.
[2020-01-26] MEDS ORDERED: Meclizine HCl 25 MG TAB ONE (20:26)
== END 2020-01-26 20:35 | disposition home or self-care (01) ==
LOC: MADERS 19:10
DX: S06.0X0A Concussion without loss of consciousness, initial encounter (principal); S00.03XA Contusion of scalp, initial encounter; M19.90 Unspecified osteoarthritis, unspecified site; E03.9 Hypothyroidism, unspecified; E78.5 Hyperlipidemia, unspecified; E78.00 Pure hypercholesterolemia, unspecified; I10 Essential (primary) hypertension; W06.XXXA Fall from bed, initial encounter; W22.8XXA Striking against or struck by other objects, initial encounter
CPT/HCPCS: 70450; 72125; J8597; L0120

== ENCOUNTER 2021-06-01 16:56 | Emergency (ER) | payer MEDICARE ==
[~2021-06-01 16:56] MED LIST: Sodium Chloride 0.9% 100 ML BAG ONE
[2021-06-01 18:40] LABS: ALT (SGPT) 11 U/L (8-55); AST (SGOT) 14 U/L (5-34); Albumin 3.7 g/dL (3.4-4.8); Alkaline Phosphatase 81 U/L (40-110); Anion Gap 14 mmol/L (10-20); BUN (Urea Nitrogen) 16 mg/dL (9.8-20.1); Bilirubin, Total 0.5 mg/dL (0.2-1.2); Calc. Creatinine Clearance 0 mL/min (70-130); Calcium 9.2 mg/dL (7.8-10.44); Carbon Dioxide 29 mmol/L (23-31); Chloride 99 mmol/L (98-107); Glucose 114 mg/dL (83-110); Lipase 7 U/L (8-78); Potassium 3.6 mmol/L (3.5-5.1); Protein, Total 6.7 g/dL (5.8-8.1); Sodium 138 mmol/L (136-145)
[2021-06-01 18:52] LABS: Bilirubin Negative (Negative); Blood, Urine Large (Negative); Glucose, Urine (Dipstick) Negative (Negative); Ketone, Urine Negative (Negative); Leukocyte Moderate (Negative); Nitrite Positive (Negative); Protein, Urine (Dipstick) 30 mg/dL (Neg-Trace); Urobilinogen 0.2 mg/dL (Less than 2); pH, Urine 5.5 (5.0-9.0)
[2021-06-01 18:58] LABS: Clarity Cloudy (Clear)
[2021-06-01 19:00] LABS: Bacteria/HPF 2+ HPF (None Seen); Squamous Epithelial 0-3 HPF (0-3); WBC/HPF Greater Than 50 HPF (0-3)
[2021-06-01 19:17] LABS: Eosinophils 1 % (0-10); Hemoglobin 13.1 g/dL (12.0-16.0); Lymphocytes 11 % (21-51); MDiff Complete? YES; Mean Corpuscular Hemoglobin 29.5 pg (27.0-31.0); Mean Corpuscular Volume 92.2 fL (78.0-98.0); Mean Platelet Volume 7.1 fL (7.4-10.4); Monocytes 7 % (0-10); Myelocyte 1 % (0-0); Neutrophil 76 % (42-75); Platelet Count 182 thou/uL (130-400); RBC Distribution Width 11.4 % (11.5-14.5); Reactive Lymphocytes 4 % (0-10); Red Blood Cell (RBC) Count 4.45 mill/uL (4.20-5.40); White Blood Cell (WBC) Count 7.6 thou/uL (4.8-10.8)
[2021-06-01] MEDS ORDERED: cefTRIAXone\\ROCEPHIN 2 GM VIAL ONE (19:32)
== END 2021-06-01 21:49 | disposition short-term general hospital (02) ==
LOC: MADERS 16:56
DX: I44.7 Left bundle-branch block, unspecified (principal); N39.0 Urinary tract infection, site not specified; R53.83 Other fatigue; M19.90 Unspecified osteoarthritis, unspecified site; E03.9 Hypothyroidism, unspecified; E78.5 Hyperlipidemia, unspecified; E78.00 Pure hypercholesterolemia, unspecified; I10 Essential (primary) hypertension; R29.700 NIHSS score 0; Z79.899 Other long term (current) drug therapy
CPT/HCPCS: 36415; 71045; 80053; 81003; 81015; 82140; 83690; 83880; 84484; 85025; 87077; 87086; 87186; 93005; 96365; J0696; J3490

== ENCOUNTER 2021-06-14 17:12 | Emergency (ER) | payer MEDICARE ==
[~2021-06-14 17:12] MED LIST changes: +Iopamidol 370 76% 125 ML VIAL FS ONE
[2021-06-14 18:42] LABS: #Basophils 0.1 thou/uL (0.0-0.2); #Eosinphils 0.1 thou/uL (0.0-0.7); #Lymphocytes 1.7 thou/uL (1.20-3.40); #Monocytes 0.5 thou/uL (0.11-0.59); #Neutrophils 3.2 thou/uL (1.40-6.50); %Basophils 1.1 % (0.0-1.0); %Eosinophils 1.8 % (0.0-10.0); %Neutrophils 58.1 % (42.0-75.0); Hemoglobin 13.8 g/dL (12.0-16.0); Mean Corpuscular Hemoglobin 29.1 pg (27.0-31.0); Mean Corpuscular Volume 94.1 fL (78.0-98.0); Mean Platelet Volume 6.3 fL (7.4-10.4); Platelet Count 283 thou/uL (130-400); Red Blood Cell (RBC) Count 4.75 mill/uL (4.20-5.40); White Blood Cell (WBC) Count 5.5 thou/uL (4.8-10.8)
[2021-06-14 19:01] LABS: ALT (SGPT) 11 U/L (8-55); AST (SGOT) 12 U/L (5-34); Albumin 3.8 g/dL (3.4-4.8); Alkaline Phosphatase 78 U/L (40-110); Anion Gap 14 mmol/L (10-20); BUN (Urea Nitrogen) 17 mg/dL (9.8-20.1); Bilirubin, Total 0.4 mg/dL (0.2-1.2); CK (CPK) 47 U/L (29-168); Calc. Creatinine Clearance 0 mL/min (70-130); Calcium 9.7 mg/dL (7.8-10.44); Carbon Dioxide 31 mmol/L (23-31); Chloride 99 mmol/L (98-107); Glucose 100 mg/dL (83-110); Potassium 3.8 mmol/L (3.5-5.1); Protein, Total 6.8 g/dL (5.8-8.1); Sodium 140 mmol/L (136-145)
[2021-06-14 22:06] LABS: Bilirubin Negative (Negative); Blood, Urine Trace (Negative); Clarity Clear (Clear); Glucose, Urine (Dipstick) Negative (Negative); Ketone, Urine Negative (Negative); Leukocyte Negative (Negative); Nitrite Negative (Negative); Protein, Urine (Dipstick) Negative (Neg-Trace); Urobilinogen 0.2 mg/dL (Less than 2)
[2021-06-14 22:07] LABS: RBC/HPF 0-3 HPF (0-3); Squamous Epithelial 0-3 HPF (0-3); WBC/HPF None Seen HPF (0-3)
== END 2021-06-14 22:00 | disposition home or self-care (01) ==
LOC: MADERS 17:12
DX: R41.82 Altered mental status, unspecified (principal); R53.1 Weakness; T36.95XA Adverse effect of unspecified systemic antibiotic, initial encounter; F43.9 Reaction to severe stress, unspecified; M19.90 Unspecified osteoarthritis, unspecified site; E03.9 Hypothyroidism, unspecified; E78.5 Hyperlipidemia, unspecified; E78.00 Pure hypercholesterolemia, unspecified; I10 Essential (primary) hypertension; Z79.899 Other long term (current) drug therapy
CPT/HCPCS: 36415; 70450; 70496; 71045; 80053; 81003; 81015; 82550; 84443; 85025; J3490; Q9967

== ENCOUNTER 2021-12-28 17:10 | Emergency (ER) | payer MEDICARE | END 2021-12-28 17:39 | disposition home or self-care (01) | LOC: MADERS 17:10 | DX: R09.81 Nasal congestion (principal); Z79.899 Other long term (current) drug therapy | CPT/HCPCS: 99283 ==

== ENCOUNTER 2022-11-26 15:30 | Emergency (ER) | payer MEDICARE ==
[2022-11-26] MEDS ORDERED: ALPRAZolam 0.5 MG TAB ONE (16:03)
[2022-11-26 16:58] LABS: Bilirubin Negative (Negative); Blood, Urine Large (Negative); Glucose, Urine (Dipstick) Negative (Negative); Ketone, Urine Negative (Negative); Leukocyte Moderate (Negative); Nitrite Negative (Negative); Protein, Urine (Dipstick) Negative (Neg-Trace); Specific Gravity, Urine 1.015 (1.005-1.030); Urobilinogen 0.2 mg/dL (Less than 2)
[2022-11-26 16:59] LABS: Clarity Hazy (Clear)
[2022-11-26 17:06] LABS: Bacteria/HPF Rare-Few HPF (None Seen); RBC/HPF Greater than 50 HPF (0-3); Squamous Epithelial 0-3 HPF (0-3)
[2022-11-26] MEDS ORDERED: Cephalexin 500 MG CAP ONE (17:22)
== END 2022-11-26 17:33 | disposition home or self-care (01) ==
LOC: MADERS 15:30
DX: F41.9 Anxiety disorder, unspecified (principal); N39.0 Urinary tract infection, site not specified; E03.9 Hypothyroidism, unspecified; I10 Essential (primary) hypertension; K21.9 Gastro-esophageal reflux disease without esophagitis; M19.90 Unspecified osteoarthritis, unspecified site
CPT/HCPCS: 36415; 81003; 81015; 84443; 87086

== ENCOUNTER 2022-12-01 12:32 | Emergency (ER) | payer MEDICARE ==
[2022-12-01] MEDS ORDERED: Sodium Chloride 0.9% 500 ML ONE (13:07)
[2022-12-01 13:11] LABS: Bilirubin Small (Negative); Blood, Urine Trace (Negative); Clarity Clear (Clear); Glucose, Urine (Dipstick) Negative (Negative); Ketone, Urine Trace mg/dL (Negative); Leukocyte Negative (Negative); Nitrite Negative (Negative); Protein, Urine (Dipstick) Negative (Neg-Trace); Urobilinogen 0.2 mg/dL (Less than 2)
[2022-12-01 13:17] LABS: RBC/HPF 0-3 HPF (0-3); Squamous Epithelial 0-3 HPF (0-3); WBC/HPF 0-3 HPF (0-3)
[2022-12-01 13:18] LABS: Bacteria/HPF Rare-Few HPF (None Seen)
[2022-12-01 13:52] LABS: ALT (SGPT) 11 U/L (8-55); AST (SGOT) 15 U/L (5-34); Albumin 4.1 g/dL (3.4-4.8); Alkaline Phosphatase 63 U/L (40-110); Anion Gap 17 mmol/L (10-20); BUN (Urea Nitrogen) 13 mg/dL (9.8-20.1); Band 1 % (5-11); Bilirubin, Total 0.7 mg/dL (0.2-1.2); Calc. Creatinine Clearance 0 mL/min (70-130); Calcium 10.1 mg/dL (7.8-10.44); Carbon Dioxide 24 mmol/L (23-31); Chloride 100 mmol/L (98-107); Eosinophils 3 % (0-10); Estimated GFR 53; Globulin 2.5 g/dL (2.4-3.5); Glucose 121 mg/dL (83-110); Hemoglobin 15.4 g/dL (12.0-16.0); Lymphocytes 17 % (21-51); MDiff Complete? YES; Magnesium 1.7 mg/dL (1.6-2.6); Mean Corpuscular HGB CONC 33.6 g/dL (32.0-36.0); Mean Corpuscular Hemoglobin 30.9 pg (27.0-31.0); Mean Corpuscular Volume 91.9 fl (78.0-98.0); Mean Platelet Volume 7.4 fL (7.4-10.4); Monocytes 4 % (0-10); Neutrophil 75 % (42-75); Platelet Count 179 10x3/uL (130-400); Platelet Morphology Comment Appears Adequate; Potassium 3.7 mmol/L (3.5-5.1); Protein, Total 6.6 g/dL (5.8-8.1); RBC Distribution Width 10.4 % (11.5-14.5); RBC Morphology Normal; Red Blood Cell (RBC) Count 4.98 mill/uL (4.20-5.40); Sodium 137 mmol/L (136-145); White Blood Cell (WBC) Count 4.9 10x3/uL (4.8-10.8)
== END 2022-12-01 14:26 | disposition home or self-care (01) ==
LOC: MADERS 12:32
DX: E86.0 Dehydration (principal); E03.9 Hypothyroidism, unspecified; I10 Essential (primary) hypertension; K21.9 Gastro-esophageal reflux disease without esophagitis; Z20.822 Contact with and (suspected) exposure to COVID-19; Z79.899 Other long term (current) drug therapy
CPT/HCPCS: 71045; 80053; 81003; 81015; 83735; 83880; 84443; 84484; 85025; 93005; J7030; U0003; U0005